=== PATIENT | male | born 1955 | race Caucasian/White ===

== ENCOUNTER 2024-11-22 07:57 | Emergency (ER) | payer MEDICARE ==
[2024-11-22] MEDS: methylPREDNISolone Sodium Succinate 125 MG/2 ML SDV IVPUSH ONE (08:42)
[2024-11-22 08:44] LABS: HEMATOCRIT 47.7 % (42.0-52.0); HEMOGLOBIN 15.6 gm/dl (14.0-18.0); MEAN CORPUSCULAR HEMOGLOBIN 29.9 pg (28.0-32.0); MEAN CORPUSCULAR HGB CONC 32.7 g/dl (32.0-36.0); MEAN CORPUSCULAR VOLUME 91.4 fl (83.0-99.0); MEAN PLATELET VOLUME 8.9 fl (9.4-12.4); PLATELET COUNT,PLT 175 K/mm3 (150-400); RED BLOOD CELL COUNT 5.22 M/mm3 (4.52-5.90); WHITE BLOOD CELL COUNT,WBC 8.57 K/mm3 (3.9-11.3)
[2024-11-22] MEDS: Sodium Chloride 0.9% 10 ML Syringe FLUSH PRN (08:45)
[2024-11-22 08:50] LABS: INR 1.03; PROTHROMBIN TIME 10.9 SECONDS (9.7-12.0)
[2024-11-22 08:57] LABS: LACTIC ACID 1.5 mmol/L (0.4-2.0)
[2024-11-22 09:04] LABS: A/G RATIO 0.9 (1-2); ALBUMIN 3.4 g/dl (3.4-5.0); ANION GAP 15.1 (5-15); BILIRUBIN TOTAL 0.9 mg/dL (0.2-1.0); BUN/CREATININE RATIO 12.5 (14-18); CALCIUM 8.8 mg/dL (8.5-10.1); CREATININE 1.2 mg/dL (0.7-1.3); EST CRCL DRUG DOSING (CG) 58.3 mL/min; POTASSIUM,K 4.1 mEq/L (3.5-5.1); PROTEIN TOTAL,TP 7.3 g/dl (6.4-8.2)
[2024-11-22] MEDS: Levalbuterol HCl 1.25 MG/3 ML Neb NEB ONE (09:06)
[2024-11-22 09:23] LABS: BAND PERCENT MAN 0 % (0-10); BASOPHILS PERCENT MAN 0 (0.2-1.2); EOSINOPHILS PERCENT MAN 0 % (0.8-7.0); LYMPHOCYTES % ATYPICAL MANUAL 0 %; LYMPHOCYTES PERCENT MAN 20 % (20-40); MONOCYTES PERCENT MAN 10 % (2-10); PLATELET COUNT ESTIMATE ADEQUATE
[2024-11-22] MEDS ORDERED: Sodium Chloride 0.9% 100 ML IV SCH (10:45)
[2024-11-22] MEDS: Iopamidol 755 Mg/ML 100 ML Bottle IVPUSH ONE (10:47)
[2024-11-22] MEDS: Albuterol/Ipratropium 3.0-0.5 MG/3 ML Neb Soln NEB ONE (11:09)
[2024-11-22] MEDS: Apixaban 5 MG Tab PO ONE (12:33)
== END 2024-11-22 12:49 | disposition home or self-care (01) ==
LOC: JD.ED 07:57
DX: I82.A11 Acute embolism and thrombosis of right axillary vein (principal); J10.1 Influenza due to other identified influenza virus with other respiratory manifestations; J44.1 Chronic obstructive pulmonary disease with (acute) exacerbation; I10 Essential (primary) hypertension; F17.210 Nicotine dependence, cigarettes, uncomplicated; Z79.899 Other long term (current) drug therapy
CPT/HCPCS: 36415; 71046; 71275; 80053; 83605; 83880; 84484; 85007; 85027; 85610; 86140; 87040; 87428; 93005; 93971; 94640; 96374; 99285; A9270; J2919; J7612; Q9967; J7620-GY